=== PATIENT | male | born 1960 | race Caucasian/White ===

== ENCOUNTER 2018-04-06 19:12 | Emergency (ER) | payer MEDICAID ==
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
== END 2018-04-06 20:30 | disposition home or self-care (01) ==
LOC: ER 19:12
DX: L03.116 Cellulitis of left lower limb (principal); I87.2 Venous insufficiency (chronic) (peripheral); K75.89 Other specified inflammatory liver diseases; F17.200 Nicotine dependence, unspecified, uncomplicated
CPT/HCPCS: Z7502; Z7610